=== PATIENT | male | born 1960 | race African-American/Black ===

== ENCOUNTER 2016-09-26 11:35 | Inpatient (IN) | payer OTHER ==
[2016-09-26 12:20] VITALS: BMI 17.9
--- NOTE | 2016-09-26 14:50 | HP ---
CIWA Score - CIWA Score Nausea/Vomitin-No Nausea/No Vomiting Muscle Tremors: 3 Anxiety: 4-Mod. Anxious/Guarded Agitation: 4-Moderately Restless Paroxysmal Sweats: 1-Minimal Palms Moist Orientation: 0-Oriented Tacttile Disturbances: 3-Moderate Itch/Numb/Burn Auditory Disturbances: 0-None Visual Disturbances: 0-None Headache: 0-None Present CIWA-Ar Total Score: 15 Admission ROS S - HPI Chief Complaint: DETOX TX FOR ALCOHOL DEPENDENCE Allergies/Adverse Reactions: Allergies Allergy/AdvReac Type Severity Reaction Status Date / Time No Known Allergies Allergy Verified 09/26/16 13:57 History of Present Illness: 55 Y/O AA/MALE WITH A HX OF ALCOHOL AND COCAINE DEPENDENCE SEEKING DETOX TX. PT IS ON S.T.A.R.T-MMTP. Exam Limitations: No Limitations - Ebola screening Have you traveled outside of the country in the last 21 days: No Have you had contact with anyone from an Ebola affected area: No Have you been sick,other than usual withdrawal symptoms: No Do you have a fever: No - Review of Systems Constitutional: Loss of Appetite, Changes in sleep (ON/OFF), Unintentional Wgt. Loss EENT: reports: Blurred Vision, Hearing Loss (DUE TO EAR WAX), Nose Congestion, Dental Problems (MISSING TEETH), Other (HX FRANCISCO. GLAUCOMA) Respiratory: reports: No Symptoms reported Cardiac: reports: Lightheadedness GI: reports: Diarrhea, Nausea, Poor Appetite, Poor Fluid Intake, Abdominal cramping : reports: Urgency Musculoskeletal: reports: Back Pain, Joint Pain, Muscle Pain, Other (LEFT WRIST FX 2 WEEKS AGO, WENT TO [facility]. HAD A CAST ON BUT NOW A SPLINT.) Integumentary: reports: Dryness, Rash (SCALY RASH ON LEFT ANKLE) Neuro: reports: Numbness (RIGHT ANKLE), Tingling, Unsteady Gait, Dizziness Endocrine: reports: No Symptoms Reported Hematology: reports: No Symptoms Reported Psychiatric: reports: Orientated x3, Agitated, Anxious Other Systems: Reviewed and Negative Patient History - Patient Medical History Hx Anemia: No Hx Asthma: No Hx Chronic Obstructive Pulmonary Disease (COPD): No Hx Cardiac Disorders: No Hx Hypertension: No Hx Hypercholesterolemia: No HX Cerebrovascular Accident: No Hx Seizures: No Hx Diabetes: Yes (BGM-145) Hx Gastrointestinal Disorders: No Hx Genitourinary Disorders: No Hx Sexually Transmitted Disorders: Yes (GC/sphyllis) Hx Renal Disease (ESRD): No Hx Thyroid Disease: No Hx Human Immunodeficiency Virus (HIV): No (NEGATIVE HX) Hx Hepatitis C: Yes (NO TREATMENT) Hx Depression: No Hx Suicide Attempt: No (DENIES) Hx Schizophrenia: No - Patient Surgical History Past Surgical History: Yes Hx Abdominal Surgery: Yes (RIGHT INGUINAL HERNIA REPAIR A CHILD) Hx Orthopedic Surgery: Yes (rt [id number]) Anesthesia Reaction: No - PPD History Previous Implant?: Yes Documented Results: Negative w/o proof Implanted On Prior R Admission?: No Results: TBD PPD to be Administered?: Yes - Reproductive History Patient is a Female of Child Bearing Age (11 -55 yrs old): No (MALE) - Smoking Cessation Smoking history: Current every day smoker Have you smoked in the past 12 months: Yes Aproximately how many cigarettes per day: 20 Hx Chewing Tobacco Use: No Initiated information on smoking cessation: Yes 'Breaking Loose' booklet given: 09/26/16 - Substance & Tx. History Hx Alcohol Use: Yes Hx Substance Use: Yes - Substances Abused Alcohol Route: Oral Frequency: Daily Amount used: vodka(2 pints)/beer-6pk 16 oz cans Age of first use: 8 Date of Last Use: 09/26/16 Cocaine Route: Smoking Frequency: Daily Amount used: $20 Age of first use: 18 Date of Last Use: 09/26/16 Family Disease History - Family Disease History Family Disease History: Other: Mother () Admission Physical Exam S - Vital Signs Vital Signs: Vital Signs - 24 hr 09/26/16 12:18 Temperature 97.5 F L Pulse Rate 77 Respiratory 18 Rate Blood Pressure 134/77 - Physical General Appearance: Yes: Moderate Distress, Thin, Irritable, Anxious HEENTM: Yes: EOMI, Normocephalic, BARBARA, Pharynx Normal, Nasal Congestion Respiratory: Yes: Chest Non-Tender, Lungs Clear, Normal Breath Sounds, No Respiratory Distress Neck: Yes: Supple, Trachea in good position Breast: Yes: Breast Exam Deferred Cardiology: Yes: Regular Rhythm, Regular Rate, S1, S2 Abdominal: Yes: Normal Bowel Sounds, Non Tender, Flat, Soft Genitourinary: Yes: Other (N/C) Back: Yes: Within Normal Limits Musculoskeletal: Yes: full range of Motion, Gait Steady Extremities: Yes: Normal Range of Motion, Non-Tender 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, Fully Oriented, Alert Integumentary: Yes: Dry, Warm, Rash (LEFT ANKLE) Lymphatic: Yes: Within Normal Limits - Diagnostic (1) Alcohol dependence with uncomplicated withdrawal Current Visit: Yes Status: Acute (2) Cocaine dependence, uncomplicated Current Visit: Yes Status: Acute (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
[2016-09-26] MEDS ORDERED: ACETAMINOPHEN 325 MG TABLET (FP) PO PRN (15:12)
[2016-09-26] MEDS ORDERED: diphenhydrAMINE HCL 50 MG CAPSULE PO PRN (15:12)
[2016-09-26] MEDS ORDERED: MAGNESIUM HYDROX 2400MG/30ML ORAL SUSPENSION 30 ML CUP PO PRN (15:12)
[2016-09-26] MEDS ORDERED: chlordiazePOXIDE HCL 25 MG CAPSULE PO PRN (15:12)
[2016-09-26] MEDS ORDERED: LOPERAMIDE HCL 2 MG CAPSULE PO PRN (15:12)
[2016-09-26] MEDS ORDERED: guaiFENesin/D-METHORPHAN HB 10 ML UNIT-DOSE CUPS PO PRN (15:12)
[2016-09-26] MEDS ORDERED: hydrOXYzine PAMOATE 25 MG CAPSULE (FP) PO PRN (15:12)
[2016-09-26] MEDS ORDERED: IBUPROFEN 400 MG TABLET (FP) PO PRN (15:12)
[2016-09-26] MEDS ORDERED: MENTHOL/PHENOL 1 EACH UD MM PRN (15:12)
[2016-09-26] MEDS ORDERED: P-EPHED 60MG/TRIPROLIDI 2.5MG TABLET PO PRN (15:12)
[2016-09-26] MEDS ORDERED: MAGNESIUM CITRATE 300 ML BOTTLE PO PRN (15:12)
[2016-09-26] MEDS ORDERED: NICOTINE POLACRILEX 4 MG GUM BUC PRN (15:12)
[2016-09-26] MEDS ORDERED: MAG HYDROX/AL HYDROX/SIMETH 30 ML UNIT-DOSE CUP PO PRN (15:12)
[2016-09-26] MEDS ORDERED: chlordiazePOXIDE HCL 25 MG CAPSULE PO ONE (15:31)
[2016-09-26] MEDS: chlordiazePOXIDE HCL 25 MG CAPSULE PO SCH ×2 (17:46→22:35)
[2016-09-26] MEDS: metFORMIN HCL 500 MG TABLET (FP) PO SCH (17:47)
[2016-09-26] MEDS: NICOTINE 21 MG/24 HOURS TOPICAL PATCH TD SCH (17:50)
[2016-09-26 19:47] LABS: URINE APPEARANCE CLEAR; URINE BILIRUBIN NEGATIVE (NEGATIVE); URINE BLOOD NEGATIVE (NEGATIVE); URINE COLOR LTYELLOW; URINE GLUCOSE (UA) NEGATIVE (NEGATIVE); URINE KETONE NEGATIVE (NEGATIVE); URINE LEUK ESTERASE NEGATIVE (NEGATIVE); URINE NITRITE NEGATIVE (NEGATIVE); URINE PROTEIN NEGATIVE (NEGATIVE); URINE UROBILINOGEN NEGATIVE E.U./dl (0.2-1.0)
[2016-09-26] MEDS: THIAMINE HCL 100 MG TABLET (FP) PO SCH (22:35)
[2016-09-27] MEDS: chlordiazePOXIDE HCL 25 MG CAPSULE PO SCH ×4 (06:33→23:53)
[2016-09-27] MEDS: metFORMIN HCL 500 MG TABLET (FP) PO SCH ×2 (07:09→17:09)
[2016-09-27] MEDS ORDERED: METHADONE HCL 10 MG TABLET PO ONE (08:28)
[2016-09-27] MEDS ORDERED: METHADONE 80 MG, METHADONE 30 MG PO ONE (08:35)
[2016-09-27] MEDS ORDERED: METHADONE HCL 10 MG TABLET ONE (09:12)
[2016-09-27] MEDS ORDERED: METHADONE HCL 40 MG DISPERSABLE TABLET ONE (09:12)
[2016-09-27 09:59] LABS: MCH 31.3 pg (25.7-33.7); MCHC 32.2 g/dl (32.0-35.9); MEAN CELL VOLUME 97.3 fl (80-96); MEAN PLT VOLUME 10.6 fl (7.5-11.1); PLATELET COUNT 276 K/MM3 (134-434); RDW 12.2 % (11.9-15.9); WHITE BLOOD COUNT 4.7 K/mm3 (4.0-10.0)
[2016-09-27 10:37] LABS: ALBUMIN 4.2 g/dl (3.4-5.0); ALK PHOS 100 U/L (45-117); ANION GAP 11 (8-16); BILIRUBIN,TOTAL 0.8 mg/dL (0.2-1.0); CALCIUM 9.1 mg/dL (8.5-10.1); CO2 23 mmol/L (21-32); COCKROFT - GAULT 83.29; CREATININE 0.9 mg/dL (0.7-1.3); GLUCOSE,RANDOM 106 mg/dL (74-106); SGOT/AST 88 U/L (15-37); SGPT/ALT 96 U/L (12-78)
[2016-09-27] MEDS: PRENATAL VITAMINS W/ FOLIC ACID TABLET (FP) PO SCH (10:38)
[2016-09-27] MEDS: NICOTINE 21 MG/24 HOURS TOPICAL PATCH TD SCH (10:39)
[2016-09-27 11:47] LABS: SICKLE CELL SCREEN NEGATIVE (NEGATIVE)
--- NOTE | 2016-09-27 11:55 | PN ---
S CIWA - CIWA Score Nausea/Vomitin Muscle Tremors: 3 Anxiety: 3 Agitation: 3 Paroxysmal Sweats: 1-Minimal Palms Moist Orientation: 0-Oriented Tacttile Disturbances: 1-Very Mild Itch/Numbness Auditory Disturbances: 1-Very Mild Visual Disturbances: 1-Very Mild Sensitivity Headache: 2-Mild CIWA-Ar Total Score: 18 S Progress Note (SOAP) Subjective: alert,irritable,anxious,interrupted sleep,tremor Objective: 09/27/16 11:52 Vital Signs Temperature 98.2 F 09/27/16 09:50 Pulse Rate 65 09/27/16 09:50 Respiratory Rate 16 09/27/16 09:50 Blood Pressure 120/70 09/27/16 09:50 O2 Sat by Pulse Oximetry (%) ekg nsr,lvh no chest pain,no sob,no dizziness Laboratory Last Values WBC 4.7 K/mm3 (4.0-10.0) 09/27/16 06:00 RBC 4.05 M/mm3 (4.00-5.60) 09/27/16 06:00 Hgb 12.7 GM/dL (11.7-16.9) 09/27/16 06:00 Hct 39.4 % (35.4-49) 09/27/16 06:00 MCV 97.3 fl (80-96) H 09/27/16 06:00 MCHC 32.2 g/dl (32.0-35.9) 09/27/16 06:00 RDW 12.2 % (11.9-15.9) 09/27/16 06:00 Plt Count 276 K/MM3 (134-434) 09/27/16 06:00 MPV 10.6 fl (7.5-11.1) 09/27/16 06:00 Sickle Cell Screen Negative (NEGATIVE) 09/27/16 06:00 Sodium 139 mmol/L (136-145) 09/27/16 06:00 Potassium 4.5 mmol/L (3.5-5.1) 09/27/16 06:00 Chloride 105 mmol/L (98-107) 09/27/16 06:00 Carbon Dioxide 23 mmol/L (21-32) 09/27/16 06:00 Anion Gap 11 (8-16) 09/27/16 06:00 BUN 14 mg/dL (7-18) 09/27/16 06:00 Creatinine 0.9 mg/dL (0.7-1.3) 09/27/16 06:00 Creat Clearance w eGFR > 60 (>60) 09/27/16 06:00 POC Glucometer 143 UNITS (()) 09/27/16 06:48 Random Glucose 106 mg/dL (74-106) 09/27/16 06:00 Calcium 9.1 mg/dL (8.5-10.1) 09/27/16 06:00 Total Bilirubin 0.8 mg/dL (0.2-1.0) 09/27/16 06:00 AST 88 U/L (15-37) H 09/27/16 06:00 ALT 96 U/L (12-78) H 09/27/16 06:00 Alkaline Phosphatase 100 U/L (45-117) 09/27/16 06:00 Total Protein 8.0 g/dl (6.4-8.2) 09/27/16 06:00 Albumin 4.2 g/dl (3.4-5.0) 09/27/16 06:00 Urine Color Ltyellow 09/26/16 14:00 Urine Appearance Clear 09/26/16 14:00 Urine pH 5.0 (5.0-8.0) 09/26/16 14:00 Ur Specific [place] 1.010 (1.005-1.025) 09/26/16 14:00 Urine Protein Negative (NEGATIVE) 09/26/16 14:00 Urine Glucose (UA) Negative (NEGATIVE) 09/26/16 14:00 Urine Ketones Negative (NEGATIVE) 09/26/16 14:00 Urine Blood Negative (NEGATIVE) 09/26/16 14:00 Urine Nitrite Negative (NEGATIVE) 09/26/16 14:00 Urine Bilirubin Negative (NEGATIVE) 09/26/16 14:00 Urine Urobilinogen Negative E.U./dl (0.2-1.0) 09/26/16 14:00 Ur Leukocyte Esterase Negative (NEGATIVE) 09/26/16 14:00 09/27/16 11:54 Assessment: 09/27/16 11:54 withdrawal symptom 09/27/16 11:54 09/27/16 11:54 Plan: continue detox,bgm is 106,
[2016-09-27 12:17] LABS: HIV 1 & 2 AB NEGATIVE; HIV 1 AGp24 NEGATIVE
--- NOTE | 2016-09-27 16:37 | EKG ---
Test Reason : Blood Pressure : / mmHG Vent. Rate : 067 BPM Atrial Rate : 067 BPM P-R Int : 160 ms QRS Dur : 100 ms QT Int : 426 ms P-R-T Axes : 066 062 040 degrees QTc Int : 450 ms NORMAL SINUS RHYTHM POSSIBLE LEFT ATRIAL ENLARGEMENT INCOMPLETE RIGHT BUNDLE BRANCH BLOCK LEFT VENTRICULAR HYPERTROPHY ABNORMAL ECG NO PREVIOUS ECGS AVAILABLE Confirmed by GEE GUERRA MD ([id number]) on 09/27/2016 4:37:09 PM Referred By: Confirmed By:GEE GUERRA MD
[2016-09-27] MEDS: THIAMINE HCL 100 MG TABLET (FP) PO SCH (22:34)
[2016-09-28] MEDS ORDERED: METHADONE HCL 40 MG DISPERSABLE TABLET ONE (05:24)
[2016-09-28] MEDS ORDERED: METHADONE HCL 10 MG TABLET ONE (05:24)
[2016-09-28] MEDS: chlordiazePOXIDE HCL 25 MG CAPSULE PO SCH ×2 (05:55→10:30)
[2016-09-28] MEDS ORDERED: METHADONE HCL 10 MG TABLET PO SCH (06:00)
[2016-09-28] MEDS: metFORMIN HCL 500 MG TABLET (FP) PO SCH ×2 (08:15→16:46)
[2016-09-28] MEDS: NICOTINE 21 MG/24 HOURS TOPICAL PATCH TD SCH (10:30)
[2016-09-28] MEDS: PRENATAL VITAMINS W/ FOLIC ACID TABLET (FP) PO SCH (10:30)
--- NOTE | 2016-09-28 10:45 | PN ---
S CIWA - CIWA Score Nausea/Vomitin Muscle Tremors: 3 Anxiety: 2 Agitation: 2 Paroxysmal Sweats: 1-Minimal Palms Moist Orientation: 0-Oriented Tacttile Disturbances: 1-Very Mild Itch/Numbness Auditory Disturbances: 1-Very Mild Visual Disturbances: 1-Very Mild Sensitivity Headache: 2-Mild CIWA-Ar Total Score: 16 S Progress Note (SOAP) Subjective: ALERT,IRRITABLE,ANXIOUS,INTERRUPTED SLEEP,TREMOR Objective: 09/28/16 10:43 Vital Signs Temperature 97.2 F L 09/28/16 09:57 Pulse Rate 72 09/28/16 09:57 Respiratory Rate 16 09/28/16 09:57 Blood Pressure 103/70 09/28/16 09:57 O2 Sat by Pulse Oximetry (%) Laboratory Last Values WBC 4.7 K/mm3 (4.0-10.0) 09/27/16 06:00 RBC 4.05 M/mm3 (4.00-5.60) 09/27/16 06:00 Hgb 12.7 GM/dL (11.7-16.9) 09/27/16 06:00 Hct 39.4 % (35.4-49) 09/27/16 06:00 MCV 97.3 fl (80-96) H 09/27/16 06:00 MCHC 32.2 g/dl (32.0-35.9) 09/27/16 06:00 RDW 12.2 % (11.9-15.9) 09/27/16 06:00 Plt Count 276 K/MM3 (134-434) 09/27/16 06:00 MPV 10.6 fl (7.5-11.1) 09/27/16 06:00 Sickle Cell Screen Negative (NEGATIVE) 09/27/16 06:00 Sodium 139 mmol/L (136-145) 09/27/16 06:00 Potassium 4.5 mmol/L (3.5-5.1) 09/27/16 06:00 Chloride 105 mmol/L (98-107) 09/27/16 06:00 Carbon Dioxide 23 mmol/L (21-32) 09/27/16 06:00 Anion Gap 11 (8-16) 09/27/16 06:00 BUN 14 mg/dL (7-18) 09/27/16 06:00 Creatinine 0.9 mg/dL (0.7-1.3) 09/27/16 06:00 Creat Clearance w eGFR > 60 (>60) 09/27/16 06:00 POC Glucometer 121 UNITS (()) 09/28/16 06:43 Random Glucose 106 mg/dL (74-106) 09/27/16 06:00 Calcium 9.1 mg/dL (8.5-10.1) 09/27/16 06:00 Total Bilirubin 0.8 mg/dL (0.2-1.0) 09/27/16 06:00 AST 88 U/L (15-37) H 09/27/16 06:00 ALT 96 U/L (12-78) H 09/27/16 06:00 Alkaline Phosphatase 100 U/L (45-117) 09/27/16 06:00 Total Protein 8.0 g/dl (6.4-8.2) 09/27/16 06:00 Albumin 4.2 g/dl (3.4-5.0) 09/27/16 06:00 Urine Color Ltyellow 09/26/16 14:00 Urine Appearance Clear 09/26/16 14:00 Urine pH 5.0 (5.0-8.0) 09/26/16 14:00 Ur Specific [place] 1.010 (1.005-1.025) 09/26/16 14:00 Urine Protein Negative (NEGATIVE) 09/26/16 14:00 Urine Glucose (UA) Negative (NEGATIVE) 09/26/16 14:00 Urine Ketones Negative (NEGATIVE) 09/26/16 14:00 Urine Blood Negative (NEGATIVE) 09/26/16 14:00 Urine Nitrite Negative (NEGATIVE) 09/26/16 14:00 Urine Bilirubin Negative (NEGATIVE) 09/26/16 14:00 Urine Urobilinogen Negative E.U./dl (0.2-1.0) 09/26/16 14:00 Ur Leukocyte Esterase Negative (NEGATIVE) 09/26/16 14:00 RPR Titer Reactive 1:8 (NONREACTIVE) H 09/27/16 06:00 T.pallidum Ab (MHA) Reactive (NONREACTIVE) 09/27/16 06:00 HIV 1&2 Antibody Screen Negative 09/26/16 14:00 HIV P24 Antigen Negative 09/26/16 14:00 PATIENT WAS TREATED FOR SYPHILIS BEFORE Assessment: 09/28/16 10:44 WITHDRAWAL SYMPTOM Plan: CONTINUE DETOX
[2016-09-28] MEDS: METHADONE 80 MG, METHADONE 30 MG PO SCH (12:57)
[2016-09-28] MEDS: chlordiazePOXIDE 5 MG CAPSULE PO SCH ×2 (16:50→23:14)
[2016-09-28] MEDS: THIAMINE HCL 100 MG TABLET (FP) PO SCH (23:14)
[2016-09-29] MEDS ORDERED: METHADONE HCL 40 MG DISPERSABLE TABLET ONE (03:21)
[2016-09-29] MEDS ORDERED: METHADONE HCL 10 MG TABLET ONE (03:22)
[2016-09-29] MEDS: chlordiazePOXIDE 5 MG CAPSULE PO SCH ×2 (06:17→11:00)
[2016-09-29] MEDS: metFORMIN HCL 500 MG TABLET (FP) PO SCH ×2 (06:24→17:33)
[2016-09-29] MEDS: NICOTINE 21 MG/24 HOURS TOPICAL PATCH TD SCH (11:00)
[2016-09-29] MEDS: PRENATAL VITAMINS W/ FOLIC ACID TABLET (FP) PO SCH (11:00)
--- NOTE | 2016-09-29 11:27 | PN ---
[facility] Progress Note (SOAP) Subjective: Sweating,interrupted sleep,restless Objective: 09/29/16 11:25 Vital Signs - 8 hr 09/29/16 09/29/16 06:24 10:00 Temperature 98.1 F 97.7 F Pulse Rate 76 85 Respiratory 18 18 Rate Blood Pressure 106/65 151/75 Laboratory Last Values WBC 4.7 K/mm3 (4.0-10.0) 09/27/16 06:00 RBC 4.05 M/mm3 (4.00-5.60) 09/27/16 06:00 Hgb 12.7 GM/dL (11.7-16.9) 09/27/16 06:00 Hct 39.4 % (35.4-49) 09/27/16 06:00 MCV 97.3 fl (80-96) H 09/27/16 06:00 MCHC 32.2 g/dl (32.0-35.9) 09/27/16 06:00 RDW 12.2 % (11.9-15.9) 09/27/16 06:00 Plt Count 276 K/MM3 (134-434) 09/27/16 06:00 MPV 10.6 fl (7.5-11.1) 09/27/16 06:00 Sickle Cell Screen Negative (NEGATIVE) 09/27/16 06:00 Sodium 139 mmol/L (136-145) 09/27/16 06:00 Potassium 4.5 mmol/L (3.5-5.1) 09/27/16 06:00 Chloride 105 mmol/L (98-107) 09/27/16 06:00 Carbon Dioxide 23 mmol/L (21-32) 09/27/16 06:00 Anion Gap 11 (8-16) 09/27/16 06:00 BUN 14 mg/dL (7-18) 09/27/16 06:00 Creatinine 0.9 mg/dL (0.7-1.3) 09/27/16 06:00 Creat Clearance w eGFR > 60 (>60) 09/27/16 06:00 POC Glucometer 178 UNITS (()) 09/29/16 06:15 Random Glucose 106 mg/dL (74-106) 09/27/16 06:00 Calcium 9.1 mg/dL (8.5-10.1) 09/27/16 06:00 Total Bilirubin 0.8 mg/dL (0.2-1.0) 09/27/16 06:00 AST 88 U/L (15-37) H 09/27/16 06:00 ALT 96 U/L (12-78) H 09/27/16 06:00 Alkaline Phosphatase 100 U/L (45-117) 09/27/16 06:00 Total Protein 8.0 g/dl (6.4-8.2) 09/27/16 06:00 Albumin 4.2 g/dl (3.4-5.0) 09/27/16 06:00 Urine Color Ltyellow 09/26/16 14:00 Urine Appearance Clear 09/26/16 14:00 Urine pH 5.0 (5.0-8.0) 09/26/16 14:00 Ur Specific [place] 1.010 (1.005-1.025) 09/26/16 14:00 Urine Protein Negative (NEGATIVE) 09/26/16 14:00 Urine Glucose (UA) Negative (NEGATIVE) 09/26/16 14:00 Urine Ketones Negative (NEGATIVE) 09/26/16 14:00 Urine Blood Negative (NEGATIVE) 09/26/16 14:00 Urine Nitrite Negative (NEGATIVE) 09/26/16 14:00 Urine Bilirubin Negative (NEGATIVE) 09/26/16 14:00 Urine Urobilinogen Negative E.U./dl (0.2-1.0) 09/26/16 14:00 Ur Leukocyte Esterase Negative (NEGATIVE) 09/26/16 14:00 RPR Titer Reactive 1:8 (NONREACTIVE) H 09/27/16 06:00 T.pallidum Ab (MHA) Reactive (NONREACTIVE) 09/27/16 06:00 HIV 1&2 Antibody Screen Negative 09/26/16 14:00 HIV P24 Antigen Negative 09/26/16 14:00 labs noted,RPR 1:8 with reactive MHA. Pt. has hx. of syphillis which was tx. Assessment: 09/29/16 11:27 Withdrawal sx. Plan: Continue detox
[2016-09-29] MEDS: METHADONE 80 MG, METHADONE 30 MG PO SCH (12:30)
--- NOTE | 2016-09-29 16:25 | PN ---
S Progress Note Note: Psychiatry Attending's note : Patient is approached,at bedside,for psychiatric evaluation. Found lying in bed.Markedly sedated.Examination deferred.
[2016-09-29] MEDS: chlordiazePOXIDE HCL 10 MG CAPSULE PO SCH ×2 (18:12→22:33)
[2016-09-29] MEDS: THIAMINE HCL 100 MG TABLET (FP) PO SCH (22:33)
[2016-09-30] MEDS: metFORMIN HCL 500 MG TABLET (FP) PO SCH (06:32)
[2016-09-30] MEDS: chlordiazePOXIDE HCL 10 MG CAPSULE PO SCH ×2 (06:54→10:39)
[2016-09-30] MEDS ORDERED: METHADONE HCL 40 MG DISPERSABLE TABLET ONE (08:07)
[2016-09-30] MEDS ORDERED: METHADONE HCL 10 MG TABLET ONE (08:08)
[2016-09-30 09:51] VITALS: TEMP 98.2
--- NOTE | 2016-09-30 10:14 | DS ---
[facility] Detox Discharge Summary Admission Date: 09/26/16 Discharge Date: 09/30/16 - History Present History: Alcohol Dependence, Cocaine Dependence, MMTP Pertinent Past History: Denies - Physical Exam Results Vital Signs: Vital Signs Temperature 98.2 F 09/30/16 06:00 Pulse Rate 76 09/30/16 06:00 Respiratory Rate 16 09/30/16 06:00 Blood Pressure 128/65 09/30/16 06:00 O2 Sat by Pulse Oximetry (%) Pertinent Admission Physical Exam Findings: Withdrawal sx. Laboratory Last Values WBC 4.7 K/mm3 (4.0-10.0) 09/27/16 06:00 RBC 4.05 M/mm3 (4.00-5.60) 09/27/16 06:00 Hgb 12.7 GM/dL (11.7-16.9) 09/27/16 06:00 Hct 39.4 % (35.4-49) 09/27/16 06:00 MCV 97.3 fl (80-96) H 09/27/16 06:00 MCHC 32.2 g/dl (32.0-35.9) 09/27/16 06:00 RDW 12.2 % (11.9-15.9) 09/27/16 06:00 Plt Count 276 K/MM3 (134-434) 09/27/16 06:00 MPV 10.6 fl (7.5-11.1) 09/27/16 06:00 Sickle Cell Screen Negative (NEGATIVE) 09/27/16 06:00 Sodium 139 mmol/L (136-145) 09/27/16 06:00 Potassium 4.5 mmol/L (3.5-5.1) 09/27/16 06:00 Chloride 105 mmol/L (98-107) 09/27/16 06:00 Carbon Dioxide 23 mmol/L (21-32) 09/27/16 06:00 Anion Gap 11 (8-16) 09/27/16 06:00 BUN 14 mg/dL (7-18) 09/27/16 06:00 Creatinine 0.9 mg/dL (0.7-1.3) 09/27/16 06:00 Creat Clearance w eGFR > 60 (>60) 09/27/16 06:00 POC Glucometer 109 UNITS (()) 09/30/16 06:28 Random Glucose 106 mg/dL (74-106) 09/27/16 06:00 Calcium 9.1 mg/dL (8.5-10.1) 09/27/16 06:00 Total Bilirubin 0.8 mg/dL (0.2-1.0) 09/27/16 06:00 AST 88 U/L (15-37) H 09/27/16 06:00 ALT 96 U/L (12-78) H 09/27/16 06:00 Alkaline Phosphatase 100 U/L (45-117) 09/27/16 06:00 Total Protein 8.0 g/dl (6.4-8.2) 09/27/16 06:00 Albumin 4.2 g/dl (3.4-5.0) 09/27/16 06:00 Urine Color Ltyellow 09/26/16 14:00 Urine Appearance Clear 09/26/16 14:00 Urine pH 5.0 (5.0-8.0) 09/26/16 14:00 Ur Specific [place] 1.010 (1.005-1.025) 09/26/16 14:00 Urine Protein Negative (NEGATIVE) 09/26/16 14:00 Urine Glucose (UA) Negative (NEGATIVE) 09/26/16 14:00 Urine Ketones Negative (NEGATIVE) 09/26/16 14:00 Urine Blood Negative (NEGATIVE) 09/26/16 14:00 Urine Nitrite Negative (NEGATIVE) 09/26/16 14:00 Urine Bilirubin Negative (NEGATIVE) 09/26/16 14:00 Urine Urobilinogen Negative E.U./dl (0.2-1.0) 09/26/16 14:00 Ur Leukocyte Esterase Negative (NEGATIVE) 09/26/16 14:00 RPR Titer Reactive 1:8 (NONREACTIVE) H 09/27/16 06:00 T.pallidum Ab (MHA) Reactive (NONREACTIVE) 09/27/16 06:00 HIV 1&2 Antibody Screen Negative 09/26/16 14:00 HIV P24 Antigen Negative 09/26/16 14:00 labs noted - Treatment Hospital Course: Detox Protocol Followed, Detoxed Safely, Responded well, Discharged Condition Good, Rehab Referral Accepted Patient has Accepted a Rehab Referral to: [facility] - Medication Discharge Medications: Ambulatory Orders Metformin HCl [Glucophage] 1,000 mg PO BID 09/26/16 - Diagnosis (1) Alcohol dependence with uncomplicated withdrawal Current Visit: Yes Status: Acute (2) Cocaine dependence, uncomplicated Current Visit: Yes Status: Acute (3) Methadone maintenance therapy patient Current Visit: Yes Status: Chronic (4) Type II diabetes mellitus Current Visit: Yes Status: Acute Qualifiers: Diabetes mellitus complication status: without complication Diabetes mellitus longterm insulin use: without terminal operations supervisor use Qualified Code(s): E11.9 - Type 2 diabetes mellitus without complications - AMA Did Patient Leave Against Medical Advice: No
[2016-09-30] MEDS: PRENATAL VITAMINS W/ FOLIC ACID TABLET (FP) PO SCH (10:39)
[2016-09-30] MEDS: NICOTINE 21 MG/24 HOURS TOPICAL PATCH TD SCH (10:39)
[2016-09-30] MEDS: METHADONE 80 MG, METHADONE 30 MG PO SCH (10:43)
[2016-09-30 14:18] VITALS: BP 130/79; PULSE 74
== END 2016-09-30 14:50 | disposition other institution (70) | DRG 773 ==
LOC: YASAS 11:35 → Y6N 14:41
PROVIDERS: ADMIT Internal Medicine Addiction Medicine; ATTEND Internal Medicine Addiction Medicine
PROC: HZ2ZZZZ Detoxification Services for Substance Abuse Treatment (ICD-10-PCS; principal; 2016-09-30)
DX: F11.20 Opioid dependence, uncomplicated (principal); F10.230 Alcohol dependence with withdrawal, uncomplicated; F14.20 Cocaine dependence, uncomplicated; E11.9 Type 2 diabetes mellitus without complications; Z79.84 Long term (current) use of oral hypoglycemic drugs; B18.2 Chronic viral hepatitis C; Z87.438 Personal history of other diseases of male genital organs; S62.102G Fracture of unspecified carpal bone, left wrist, subsequent encounter for fracture with delayed healing; X58.XXXD Exposure to other specified factors, subsequent encounter
CPT/HCPCS: 36415; 80053; 81003; 85027; 85660; 86593; 86780; 87389; 93005; 93010

== ENCOUNTER 2016-09-30 14:49 | Inpatient (IN) | payer OTHER ==
[2016-09-30] MEDS ORDERED: LOPERAMIDE HCL 2 MG CAPSULE PO PRN (15:20)
[2016-09-30] MEDS ORDERED: MENTHOL/PHENOL 1 EACH UD MM PRN (15:20)
[2016-09-30] MEDS ORDERED: NICOTINE POLACRILEX 2 MG GUM BUC PRN (15:20)
[2016-09-30] MEDS ORDERED: MAGNESIUM CITRATE 300 ML BOTTLE PO PRN (15:20)
[2016-09-30] MEDS ORDERED: IBUPROFEN 400 MG TABLET (FP) PO PRN (15:20)
[2016-09-30] MEDS ORDERED: MAG HYDROX/AL HYDROX/SIMETH 30 ML UNIT-DOSE CUP PO PRN (15:20)
[2016-09-30] MEDS ORDERED: MAGNESIUM HYDROX 2400MG/30ML ORAL SUSPENSION 30 ML CUP PO PRN (15:20)
[2016-09-30] MEDS ORDERED: guaiFENesin/D-METHORPHAN HB 10 ML UNIT-DOSE CUPS PO PRN (15:20)
[2016-09-30] MEDS ORDERED: P-EPHED 60MG/TRIPROLIDI 2.5MG TABLET PO PRN (15:20)
[2016-09-30] MEDS ORDERED: ACETAMINOPHEN 325 MG TABLET (FP) PO PRN (15:20)
--- NOTE | 2016-09-30 15:29 | HP ---
[facility] Rehab Assess/Revision - Admission History Admitted to Rehab from: [facility] Date of Admission to Rehab: 09/30/16 - Vital signs Vital Signs: Vital Signs Period Temp Pulse Resp BP Sys/Grant Pulse Ox Last 24 Hr 98.2 F 76 18 128/73 - Findings Detox History & Physical reviewed: Yes Concur with findings: Yes Comments/Additional Findings: Pt. was very drowsy during his time in detox.He's on OTP receiving methadone 110mg daily.According to staff,once pt. takes methadone he's becomes extremely drowsy.We'll decrease methadone to 40mg daily and monitor pt.
[2016-09-30] MEDS: metFORMIN HCL 500 MG TABLET (FP) PO SCH (16:58)
[2016-09-30] MEDS: INSULIN (NOVOLOG) ASPART 100 UNITS/ML 10ML VIAL SQ SCH (16:59)
[2016-09-30] MEDS: diphenhydrAMINE HCL 50 MG CAPSULE PO PRN (21:28)
[2016-09-30] MEDS: THIAMINE HCL 100 MG TABLET (FP) PO SCH (21:28)
[2016-10-01] MEDS: INSULIN (NOVOLOG) ASPART 100 UNITS/ML 10ML VIAL SQ SCH ×2 (07:18→16:49)
[2016-10-01] MEDS: metFORMIN HCL 500 MG TABLET (FP) PO SCH ×2 (09:06→16:49)
[2016-10-01] MEDS: METHADONE HCL 10 MG TABLET PO SCH (10:03)
[2016-10-01] MEDS: PRENATAL VITAMINS W/ FOLIC ACID TABLET (FP) PO SCH (10:03)
[2016-10-01] MEDS: NICOTINE 21 MG/24 HOURS TOPICAL PATCH TD SCH (10:03)
--- NOTE | 2016-10-01 12:00 | HP ---
Psychiatrist Admission - Data Date of interview: 10/01/16 Identifying data: This is the first 5N inpatient rehabilitation admission for this 55 year old single black male, who is currently homeless, supported on food stamps. Medical History: Diabetes, Hepatitis C, right inguinal hernia repair as a child , right knee surgery in 2013, smokes cigarettes 1 PPD. Psychiatric History: Patient denies history of psychiatric treatment. Physical/Sexual Abuse/Trauma History: Patient denies history of sexual, physical and verbal abuse. Vital Signs: Vital Signs - 24 hr 09/30/16 10/01/16 10/01/16 14:52 00:30 06:37 Temperature 98.2 F 97.6 F Pulse Rate 76 61 Respiratory 18 18 16 Rate Blood Pressure 128/73 111/64 Allergies/Adverse Reactions: Allergies Allergy/AdvReac Type Severity Reaction Status Date / Time No Known Allergies Allergy Verified 09/30/16 15:43 Date of last physical exam: 09/26/16 Concur with the findings of this exam: Yes - Substance Abuse/Tx History Hx Alcohol Use: Yes Hx Substance Use: Yes Substance Use Type: Alcohol (6 pcks of 16 oz), Cocaine ($20 daily) Hx Substance Use Treatment: Yes - Admission Criteria Previous failed treatment: Yes Poor recovery environment: Yes Comorbidities: No Lacks judgement: Yes Mental Status Exam - Mental Status Exam Alert and Oriented to: Time, Place, Person Cognitive Function: Good Patient Appearance: Well Groomed Affect: Appropriate, Mood Congruent Patient Behavior: Sedated, Appropriate, Cooperative Speech Pattern: Clear, Appropriate Voice Loudness: Normal, Moderately Loud Thought Process: Intact, Goal Oriented Thought Disorder: Not Present Hallucinations: Denies Suicidal Ideation: Denies Homicidal Ideation: Denies Insight/Judgement: Fair Sleep: Fair Appetite: Fair Muscle strength/Tone: Normal Gait/Station: Normal Psychiatric Findings - Problem List ([place] 1, 2,3) (1) Type II diabetes mellitus Current Visit: No Status: Acute Qualifiers: Diabetes mellitus complication status: without complication Diabetes mellitus long term acute care registered nurse insulin use: without long term acute care registered nurse use Qualified Code(s): E11.9 - Type 2 diabetes mellitus without complications (2) Methadone maintenance therapy patient Current Visit: No Status: Chronic (3) Cocaine dependence Current Visit: Yes Status: Acute (4) Alcohol dependence Current Visit: Yes Status: Acute (5) Nicotine dependence Current Visit: Yes Status: Acute - Initial Treatment Plan Initial Treatment Plan: will monitor progress as needed.
[2016-10-01] MEDS: THIAMINE HCL 100 MG TABLET (FP) PO SCH (21:31)
[2016-10-01] MEDS: diphenhydrAMINE HCL 50 MG CAPSULE PO PRN (21:31)
[2016-10-02] MEDS: metFORMIN HCL 500 MG TABLET (FP) PO SCH ×2 (06:20→17:05)
[2016-10-02] MEDS: INSULIN (NOVOLOG) ASPART 100 UNITS/ML 10ML VIAL SQ SCH ×2 (06:21→17:06)
[2016-10-02] MEDS: NICOTINE 21 MG/24 HOURS TOPICAL PATCH TD SCH (09:53)
[2016-10-02] MEDS: PRENATAL VITAMINS W/ FOLIC ACID TABLET (FP) PO SCH (09:53)
[2016-10-02] MEDS: METHADONE HCL 10 MG TABLET PO SCH (09:53)
[2016-10-02] MEDS: diphenhydrAMINE HCL 50 MG CAPSULE PO PRN (21:25)
[2016-10-02] MEDS: THIAMINE HCL 100 MG TABLET (FP) PO SCH (21:25)
[2016-10-03] MEDS: diphenhydrAMINE HCL 50 MG CAPSULE PO PRN ×2 (00:23→21:22)
[2016-10-03] MEDS: metFORMIN HCL 500 MG TABLET (FP) PO SCH ×2 (06:24→17:22)
[2016-10-03] MEDS: INSULIN (NOVOLOG) ASPART 100 UNITS/ML 10ML VIAL SQ SCH ×2 (06:25→17:22)
[2016-10-03] MEDS: METHADONE HCL 10 MG TABLET PO SCH (10:19)
[2016-10-03] MEDS: PRENATAL VITAMINS W/ FOLIC ACID TABLET (FP) PO SCH (10:21)
[2016-10-03] MEDS: NICOTINE 21 MG/24 HOURS TOPICAL PATCH TD SCH (10:21)
[2016-10-03] MEDS: THIAMINE HCL 100 MG TABLET (FP) PO SCH (21:22)
[2016-10-04] MEDS: diphenhydrAMINE HCL 50 MG CAPSULE PO PRN ×2 (00:55→21:29)
[2016-10-04] MEDS: metFORMIN HCL 500 MG TABLET (FP) PO SCH ×2 (06:41→16:47)
[2016-10-04] MEDS: INSULIN (NOVOLOG) ASPART 100 UNITS/ML 10ML VIAL SQ SCH ×2 (06:42→16:46)
[2016-10-04] MEDS: PRENATAL VITAMINS W/ FOLIC ACID TABLET (FP) PO SCH (10:27)
[2016-10-04] MEDS: METHADONE HCL 10 MG TABLET PO SCH (10:28)
[2016-10-04] MEDS: NICOTINE 21 MG/24 HOURS TOPICAL PATCH TD SCH (10:28)
[2016-10-04] MEDS: THIAMINE HCL 100 MG TABLET (FP) PO SCH (21:28)
[2016-10-05] MEDS: diphenhydrAMINE HCL 50 MG CAPSULE PO PRN ×2 (01:39→21:27)
[2016-10-05] MEDS: metFORMIN HCL 500 MG TABLET (FP) PO SCH ×2 (06:58→17:14)
[2016-10-05] MEDS: INSULIN (NOVOLOG) ASPART 100 UNITS/ML 10ML VIAL SQ SCH ×2 (07:00→17:15)
[2016-10-05] MEDS: METHADONE HCL 10 MG TABLET PO SCH (10:52)
[2016-10-05] MEDS: PRENATAL VITAMINS W/ FOLIC ACID TABLET (FP) PO SCH (10:52)
[2016-10-05] MEDS: NICOTINE 21 MG/24 HOURS TOPICAL PATCH TD SCH (10:54)
--- NOTE | 2016-10-05 14:53 | PN ---
[facility] Progress Note Note: Patient reports he take one benaryl which not effective still unable to sleep, will increase 100 mg po hs, continue to monitor progress.
[2016-10-05] MEDS: THIAMINE HCL 100 MG TABLET (FP) PO SCH (21:27)
[2016-10-06] MEDS: INSULIN (NOVOLOG) ASPART 100 UNITS/ML 10ML VIAL SQ SCH ×2 (06:57→16:54)
[2016-10-06] MEDS: metFORMIN HCL 500 MG TABLET (FP) PO SCH ×2 (06:57→16:55)
[2016-10-06] MEDS ORDERED: INSULIN (NOVOLOG) ASPART 100 UNITS/ML 10ML VIAL ONE ×2 (07:09→16:54)
[2016-10-06] MEDS: NICOTINE 21 MG/24 HOURS TOPICAL PATCH TD SCH (10:01)
[2016-10-06] MEDS: METHADONE HCL 10 MG TABLET PO SCH (10:01)
[2016-10-06] MEDS: PRENATAL VITAMINS W/ FOLIC ACID TABLET (FP) PO SCH (10:01)
[2016-10-06] MEDS: THIAMINE HCL 100 MG TABLET (FP) PO SCH (21:26)
[2016-10-06] MEDS: diphenhydrAMINE HCL 50 MG CAPSULE PO PRN (21:26)
[2016-10-07] MEDS: INSULIN (NOVOLOG) ASPART 100 UNITS/ML 10ML VIAL SQ SCH ×2 (06:33→16:43)
[2016-10-07] MEDS: metFORMIN HCL 500 MG TABLET (FP) PO SCH ×2 (06:33→16:42)
[2016-10-07] MEDS ORDERED: INSULIN (NOVOLOG) ASPART 100 UNITS/ML 10ML VIAL ONE ×2 (06:51→16:44)
[2016-10-07] MEDS: METHADONE HCL 10 MG TABLET PO SCH (10:57)
[2016-10-07] MEDS: PRENATAL VITAMINS W/ FOLIC ACID TABLET (FP) PO SCH (10:57)
[2016-10-07] MEDS: NICOTINE 21 MG/24 HOURS TOPICAL PATCH TD SCH (10:58)
[2016-10-07] MEDS: THIAMINE HCL 100 MG TABLET (FP) PO SCH (21:18)
[2016-10-07] MEDS: diphenhydrAMINE HCL 50 MG CAPSULE PO PRN (21:19)
[2016-10-08] MEDS: metFORMIN HCL 500 MG TABLET (FP) PO SCH ×2 (06:29→17:00)
[2016-10-08] MEDS: INSULIN (NOVOLOG) ASPART 100 UNITS/ML 10ML VIAL SQ SCH ×2 (06:30→17:01)
[2016-10-08] MEDS ORDERED: INSULIN (NOVOLOG) ASPART 100 UNITS/ML 10ML VIAL ONE ×2 (06:49→17:05)
[2016-10-08] MEDS: METHADONE HCL 10 MG TABLET PO SCH (10:09)
[2016-10-08] MEDS: PRENATAL VITAMINS W/ FOLIC ACID TABLET (FP) PO SCH (10:09)
[2016-10-08] MEDS: NICOTINE 21 MG/24 HOURS TOPICAL PATCH TD SCH (10:11)
[2016-10-08] MEDS: THIAMINE HCL 100 MG TABLET (FP) PO SCH (21:34)
[2016-10-08] MEDS: diphenhydrAMINE HCL 50 MG CAPSULE PO PRN (21:34)
[2016-10-09] MEDS: INSULIN (NOVOLOG) ASPART 100 UNITS/ML 10ML VIAL SQ SCH ×2 (06:03→17:07)
[2016-10-09] MEDS: metFORMIN HCL 500 MG TABLET (FP) PO SCH ×2 (06:03→17:04)
[2016-10-09] MEDS ORDERED: INSULIN (NOVOLOG) ASPART 100 UNITS/ML 10ML VIAL ONE ×2 (06:40→20:04)
[2016-10-09] MEDS: PRENATAL VITAMINS W/ FOLIC ACID TABLET (FP) PO SCH (10:18)
[2016-10-09] MEDS: NICOTINE 21 MG/24 HOURS TOPICAL PATCH TD SCH (10:19)
[2016-10-09] MEDS ORDERED: METHADONE HCL 40 MG DISPERSABLE TABLET PO ONE (11:08)
[2016-10-09] MEDS: diphenhydrAMINE HCL 50 MG CAPSULE PO PRN (21:20)
[2016-10-09] MEDS: THIAMINE HCL 100 MG TABLET (FP) PO SCH (21:20)
[2016-10-10] MEDS ORDERED: METHADONE HCL 10 MG TABLET PO SCH (06:00)
[2016-10-10] MEDS: INSULIN (NOVOLOG) ASPART 100 UNITS/ML 10ML VIAL SQ SCH ×2 (06:06→17:01)
[2016-10-10] MEDS: METHADONE HCL 40 MG DISPERSABLE TABLET PO SCH (06:07)
[2016-10-10] MEDS: metFORMIN HCL 500 MG TABLET (FP) PO SCH ×2 (06:08→17:01)
[2016-10-10] MEDS ORDERED: INSULIN (NOVOLOG) ASPART 100 UNITS/ML 10ML VIAL ONE (06:57)
[2016-10-10] MEDS: NICOTINE 21 MG/24 HOURS TOPICAL PATCH TD SCH (10:33)
[2016-10-10] MEDS: PRENATAL VITAMINS W/ FOLIC ACID TABLET (FP) PO SCH (10:33)
--- NOTE | 2016-10-10 12:01 | PN ---
[facility] Progress Note Note: earwax both ears.debrox ear drop dermatitis left ankle on index cream
[2016-10-10] MEDS: CARBAMIDE PEROXIDE 6.5% OTIC 15 ML BOTTLE AU SCH ×2 (14:29→21:34)
[2016-10-10] MEDS: FLUOCINONIDE 0.05% CREAM (60 GM TUBE) TP SCH (21:34)
[2016-10-10] MEDS: diphenhydrAMINE HCL 50 MG CAPSULE PO PRN (21:35)
[2016-10-10] MEDS: THIAMINE HCL 100 MG TABLET (FP) PO SCH (21:35)
[2016-10-11] MEDS: INSULIN (NOVOLOG) ASPART 100 UNITS/ML 10ML VIAL SQ SCH ×2 (06:14→16:59)
[2016-10-11] MEDS: metFORMIN HCL 500 MG TABLET (FP) PO SCH ×2 (06:14→16:59)
[2016-10-11] MEDS: METHADONE HCL 40 MG DISPERSABLE TABLET PO SCH (06:14)
[2016-10-11] MEDS ORDERED: INSULIN (NOVOLOG) ASPART 100 UNITS/ML 10ML VIAL ONE ×2 (06:51→16:58)
[2016-10-11] MEDS: PRENATAL VITAMINS W/ FOLIC ACID TABLET (FP) PO SCH (10:09)
[2016-10-11] MEDS: NICOTINE 21 MG/24 HOURS TOPICAL PATCH TD SCH (10:09)
[2016-10-11] MEDS: FLUOCINONIDE 0.05% CREAM (60 GM TUBE) TP SCH ×2 (10:10→21:43)
[2016-10-11] MEDS: CARBAMIDE PEROXIDE 6.5% OTIC 15 ML BOTTLE AU SCH ×2 (10:12→21:43)
[2016-10-11] MEDS: THIAMINE HCL 100 MG TABLET (FP) PO SCH (21:42)
[2016-10-11] MEDS: diphenhydrAMINE HCL 50 MG CAPSULE PO PRN (21:43)
[2016-10-12] MEDS: INSULIN (NOVOLOG) ASPART 100 UNITS/ML 10ML VIAL SQ SCH ×2 (06:19→16:57)
[2016-10-12] MEDS: METHADONE HCL 40 MG DISPERSABLE TABLET PO SCH (06:19)
[2016-10-12] MEDS: metFORMIN HCL 500 MG TABLET (FP) PO SCH ×2 (06:19→16:56)
[2016-10-12] MEDS: PRENATAL VITAMINS W/ FOLIC ACID TABLET (FP) PO SCH (10:02)
[2016-10-12] MEDS: NICOTINE 21 MG/24 HOURS TOPICAL PATCH TD SCH (10:02)
[2016-10-12] MEDS: CARBAMIDE PEROXIDE 6.5% OTIC 15 ML BOTTLE AU SCH ×2 (10:03→22:00)
[2016-10-12] MEDS: FLUOCINONIDE 0.05% CREAM (60 GM TUBE) TP SCH ×2 (10:03→21:52)
[2016-10-12] MEDS: THIAMINE HCL 100 MG TABLET (FP) PO SCH (21:50)
[2016-10-12] MEDS: diphenhydrAMINE HCL 50 MG CAPSULE PO PRN (21:51)
[2016-10-13] MEDS: metFORMIN HCL 500 MG TABLET (FP) PO SCH ×2 (06:35→17:06)
[2016-10-13] MEDS: METHADONE HCL 40 MG DISPERSABLE TABLET PO SCH (06:35)
[2016-10-13] MEDS: INSULIN (NOVOLOG) ASPART 100 UNITS/ML 10ML VIAL SQ SCH ×2 (06:35→17:09)
[2016-10-13] MEDS ORDERED: INSULIN (NOVOLOG) ASPART 100 UNITS/ML 10ML VIAL ONE ×2 (06:57→17:14)
[2016-10-13] MEDS: PRENATAL VITAMINS W/ FOLIC ACID TABLET (FP) PO SCH (09:55)
[2016-10-13] MEDS: NICOTINE 21 MG/24 HOURS TOPICAL PATCH TD SCH (09:55)
[2016-10-13] MEDS: FLUOCINONIDE 0.05% CREAM (60 GM TUBE) TP SCH ×2 (09:55→21:54)
[2016-10-13] MEDS: CARBAMIDE PEROXIDE 6.5% OTIC 15 ML BOTTLE AU SCH ×2 (09:56→23:37)
[2016-10-13] MEDS: THIAMINE HCL 100 MG TABLET (FP) PO SCH (21:53)
[2016-10-13] MEDS: diphenhydrAMINE HCL 50 MG CAPSULE PO PRN (21:54)
[2016-10-14] MEDS: metFORMIN HCL 500 MG TABLET (FP) PO SCH ×2 (06:12→17:02)
[2016-10-14] MEDS: METHADONE HCL 40 MG DISPERSABLE TABLET PO SCH (06:12)
[2016-10-14] MEDS: INSULIN (NOVOLOG) ASPART 100 UNITS/ML 10ML VIAL SQ SCH ×2 (06:14→17:04)
[2016-10-14] MEDS: FLUOCINONIDE 0.05% CREAM (60 GM TUBE) TP SCH ×2 (10:18→22:10)
[2016-10-14] MEDS: NICOTINE 21 MG/24 HOURS TOPICAL PATCH TD SCH (10:18)
[2016-10-14] MEDS: PRENATAL VITAMINS W/ FOLIC ACID TABLET (FP) PO SCH (10:18)
[2016-10-14] MEDS: CARBAMIDE PEROXIDE 6.5% OTIC 15 ML BOTTLE AU SCH ×2 (10:19→22:09)
[2016-10-14] MEDS ORDERED: INSULIN (NOVOLOG) ASPART 100 UNITS/ML 10ML VIAL ONE (18:12)
[2016-10-14] MEDS: THIAMINE HCL 100 MG TABLET (FP) PO SCH (22:09)
[2016-10-14] MEDS: diphenhydrAMINE HCL 50 MG CAPSULE PO PRN (22:09)
[2016-10-15] MEDS: metFORMIN HCL 500 MG TABLET (FP) PO SCH ×2 (06:31→16:42)
[2016-10-15] MEDS: METHADONE HCL 40 MG DISPERSABLE TABLET PO SCH (06:31)
[2016-10-15] MEDS: INSULIN (NOVOLOG) ASPART 100 UNITS/ML 10ML VIAL SQ SCH ×2 (06:32→16:43)
[2016-10-15] MEDS ORDERED: INSULIN (NOVOLOG) ASPART 100 UNITS/ML 10ML VIAL ONE (06:45)
[2016-10-15] MEDS: PRENATAL VITAMINS W/ FOLIC ACID TABLET (FP) PO SCH (10:22)
[2016-10-15] MEDS: CARBAMIDE PEROXIDE 6.5% OTIC 15 ML BOTTLE AU SCH ×2 (10:23→21:45)
[2016-10-15] MEDS: FLUOCINONIDE 0.05% CREAM (60 GM TUBE) TP SCH ×2 (10:23→21:45)
[2016-10-15] MEDS: NICOTINE 21 MG/24 HOURS TOPICAL PATCH TD SCH (10:24)
[2016-10-15] MEDS: diphenhydrAMINE HCL 50 MG CAPSULE PO PRN (21:44)
[2016-10-15] MEDS: THIAMINE HCL 100 MG TABLET (FP) PO SCH (21:44)
[2016-10-16] MEDS: METHADONE HCL 40 MG DISPERSABLE TABLET PO SCH (06:49)
[2016-10-16] MEDS: metFORMIN HCL 500 MG TABLET (FP) PO SCH ×2 (06:49→16:43)
[2016-10-16] MEDS: INSULIN (NOVOLOG) ASPART 100 UNITS/ML 10ML VIAL SQ SCH ×2 (06:50→16:42)
[2016-10-16] MEDS: PRENATAL VITAMINS W/ FOLIC ACID TABLET (FP) PO SCH (10:17)
[2016-10-16] MEDS: FLUOCINONIDE 0.05% CREAM (60 GM TUBE) TP SCH ×2 (10:17→21:42)
[2016-10-16] MEDS: NICOTINE 21 MG/24 HOURS TOPICAL PATCH TD SCH (10:17)
[2016-10-16] MEDS: CARBAMIDE PEROXIDE 6.5% OTIC 15 ML BOTTLE AU SCH ×2 (10:17→21:42)
[2016-10-16] MEDS ORDERED: INSULIN (NOVOLOG) ASPART 100 UNITS/ML 10ML VIAL ONE (17:06)
[2016-10-16] MEDS: THIAMINE HCL 100 MG TABLET (FP) PO SCH (21:42)
[2016-10-16] MEDS: diphenhydrAMINE HCL 50 MG CAPSULE PO PRN (21:43)
[2016-10-17] MEDS: METHADONE HCL 40 MG DISPERSABLE TABLET PO SCH (06:25)
[2016-10-17] MEDS: metFORMIN HCL 500 MG TABLET (FP) PO SCH ×2 (06:25→17:02)
[2016-10-17] MEDS: INSULIN (NOVOLOG) ASPART 100 UNITS/ML 10ML VIAL SQ SCH ×2 (06:26→17:02)
[2016-10-17] MEDS: PRENATAL VITAMINS W/ FOLIC ACID TABLET (FP) PO SCH (10:04)
[2016-10-17] MEDS: CARBAMIDE PEROXIDE 6.5% OTIC 15 ML BOTTLE AU SCH ×2 (10:05→21:31)
[2016-10-17] MEDS: FLUOCINONIDE 0.05% CREAM (60 GM TUBE) TP SCH ×2 (10:05→21:32)
[2016-10-17] MEDS: NICOTINE 21 MG/24 HOURS TOPICAL PATCH TD SCH (10:05)
[2016-10-17] MEDS: THIAMINE HCL 100 MG TABLET (FP) PO SCH (21:31)
[2016-10-17] MEDS: diphenhydrAMINE HCL 50 MG CAPSULE PO PRN (21:32)
[2016-10-18] MEDS: metFORMIN HCL 500 MG TABLET (FP) PO SCH ×2 (06:36→16:51)
[2016-10-18] MEDS: METHADONE HCL 40 MG DISPERSABLE TABLET PO SCH (06:36)
[2016-10-18] MEDS: INSULIN (NOVOLOG) ASPART 100 UNITS/ML 10ML VIAL SQ SCH ×2 (06:36→16:53)
[2016-10-18] MEDS: PRENATAL VITAMINS W/ FOLIC ACID TABLET (FP) PO SCH (10:12)
[2016-10-18] MEDS: NICOTINE 21 MG/24 HOURS TOPICAL PATCH TD SCH (10:13)
[2016-10-18] MEDS: CARBAMIDE PEROXIDE 6.5% OTIC 15 ML BOTTLE AU SCH ×2 (10:13→21:46)
[2016-10-18] MEDS: FLUOCINONIDE 0.05% CREAM (60 GM TUBE) TP SCH ×2 (10:13→21:46)
[2016-10-18] MEDS ORDERED: INSULIN (NOVOLOG) ASPART 100 UNITS/ML 10ML VIAL ONE (18:36)
[2016-10-18] MEDS: THIAMINE HCL 100 MG TABLET (FP) PO SCH (21:45)
[2016-10-18] MEDS: diphenhydrAMINE HCL 50 MG CAPSULE PO PRN (21:45)
[2016-10-19] MEDS: METHADONE HCL 40 MG DISPERSABLE TABLET PO SCH (06:15)
[2016-10-19] MEDS: metFORMIN HCL 500 MG TABLET (FP) PO SCH (06:15)
[2016-10-19] MEDS: INSULIN (NOVOLOG) ASPART 100 UNITS/ML 10ML VIAL SQ SCH (06:42)
[2016-10-19 07:10] VITALS: BP 135/81; PULSE 70; TEMP 98.2
[2016-10-19] MEDS: CARBAMIDE PEROXIDE 6.5% OTIC 15 ML BOTTLE AU SCH (09:58)
[2016-10-19] MEDS: FLUOCINONIDE 0.05% CREAM (60 GM TUBE) TP SCH (09:58)
[2016-10-19] MEDS: PRENATAL VITAMINS W/ FOLIC ACID TABLET (FP) PO SCH (09:58)
[2016-10-19] MEDS: NICOTINE 21 MG/24 HOURS TOPICAL PATCH TD SCH (09:58)
--- NOTE | 2016-10-19 10:24 | PN ---
Psychiatric Progress Note Vital Signs: Vital Signs Period Temp Pulse Resp BP Sys/Grant Pulse Ox Last 24 Hr 98.2 F 70 18-18 135/81 Date of Session: 10/19/16 Chief Complaint:: discharge visit HPI: Patient is addressing alcohol, cocaine , nicotine dependence. ROS: Diabetes, Hepatitis C medically manged. Current Medications: Active Medications Generic Name Dose Route Start Last Admin Trade Name Freq PRN Reason Stop Dose Admin Acetaminophen 650 mg 09/30/16 15:20 Tylenol - PO Q4H PRN FEVER OR PAIN Al Hydroxide/Mg Hydroxide 30 ml 09/30/16 15:20 10/02/16 19:13 Mylanta Oral Suspension - PO 30 ml Q6H PRN Administration DYSPEPSIA Carbamide Perox/Anhydrous Glycerin 5 drop 10/10/16 12:00 10/19/16 09:58 Debrox - AU Not Given BID [facility] Diphenhydramine HCl 100 mg 10/05/16 14:49 10/18/16 21:45 Benadryl - PO 100 mg HS PRN Administration FOR ITCHING Eucalyptus/Menthol/Phenol/Sorbitol 1 each 09/30/16 15:20 Cepastat Lozenge - MM Q4H PRN SORE THROAT Fluocinonide 1 applic 10/10/16 22:00 10/19/16 09:58 Lidex 0.05% Cream - TP Not Given BID [facility] Guaifenesin 10 ml 09/30/16 15:20 Robitussin Dm - PO Q6H PRN COUGH Ibuprofen 400 mg 09/30/16 15:20 Motrin - PO Q6H PRN PAIN Insulin Aspart 0 units 09/30/16 16:30 10/19/16 06:42 Novolog Vial SQ Not Given BIDAC [facility] Protocol Loperamide HCl 4 mg 09/30/16 15:20 Imodium - PO Q6H PRN DIARRHEA Magnesium Hydroxide 30 ml 09/30/16 15:20 Milk Of Magnesia - PO DAILY PRN CONSTIPATION Metformin HCl 1,000 mg 09/30/16 16:30 10/19/16 06:15 Glucophage - PO 1,000 mg BID@0700,1630 [facility] Administration Methadone HCl 40 mg 10/16/16 06:00 10/19/16 06:15 Dolophine - PO 40 mg DAILY@0600 [facility] Administration Nicotine 21 mg 10/01/16 10:00 10/19/16 09:58 Nicoderm Patch - TD Not Given DAILY KATTY Nicotine Polacrilex 4 mg 09/30/16 15:20 Nicorette Gum - BUC Q2H PRN NICOTINE REPLACEMENT RX Multivit/Folic Acid/Iron 1 tab 10/01/16 10:00 10/19/16 09:58 Vitamins (Sjr) - PO 1 tab DAILY KATTY Administration Pseudoephedrine/Triprolidine 1 combo 09/30/16 15:20 Actifed - PO TID PRN NASAL CONGESTION Thiamine HCl 100 mg 09/30/16 22:00 10/18/16 21:45 Vitamin B1 - PO 100 mg HS KATYT Administration Current Side Effect: No Lab tests ordered: No Lab tests reviewed: Yes Provider note:: The patient has completed today his treatment an dmet his goaokelsey , will continue to address his issues at [facility]. PAtient focused on importance of changing attitudes, improving copy skills and utilzation supports to prevent relapses. Patient reports that he learned a lot through this treatment and verbailized his his resolution to stay sober and adherent to his aftercare plans, patient is stable for discharge. Total face to face time:: 35 Mental Status Exam - Mental Status Exam Alert and Oriented to: Time, Place, Person Cognitive Function: Good Patient Appearance: Well Groomed Mood: Hopeful Affect: Appropriate, Mood Congruent Patient Behavior: Appropriate, Cooperative Speech Pattern: Clear, Appropriate Voice Loudness: Normal Thought Process: Intact, Goal Oriented Thought Disorder: Not Present Hallucinations: Denies Suicidal Ideation: Denies Homicidal Ideation: Denies Insight/Judgement: Fair Sleep: Fair Appetite: Fair Muscle strength/Tone: Normal Gait/Station: Normal Psychiatric Treatment Plan - Problem List (1) Type II diabetes mellitus Current Visit: No Qualifiers: Diabetes mellitus complication status: without complication 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
== END 2016-10-19 10:45 | disposition home or self-care (01) | DRG 772 ==
LOC: YASAS 14:49 → Y5N 14:50
PROVIDERS: ADMIT Psychiatry & Neurology Psychiatry; ATTEND Psychiatry & Neurology Psychiatry
PROC: HZ42ZZZ Group Counseling for Substance Abuse Treatment, Cognitive-Behavioral (ICD-10-PCS; principal; 2016-10-19)
DX: F11.20 Opioid dependence, uncomplicated (principal); F10.230 Alcohol dependence with withdrawal, uncomplicated; F14.20 Cocaine dependence, uncomplicated; F17.210 Nicotine dependence, cigarettes, uncomplicated; E11.9 Type 2 diabetes mellitus without complications; Z79.84 Long term (current) use of oral hypoglycemic drugs